=== PATIENT | female | born 1995 | race Caucasian/White ===

== ENCOUNTER 2021-08-11 11:30 | Outpatient (CLI) | payer OTHER, SELFPAY ==
--- NOTE | 2021-08-11 13:05 | W.ANESCHARGE ---
Anesthesia Charges Start Date/Time Anesthesia Start Date: 08/11/21 Anesthesia Start Time: 12:45 Stop Date/Time Anesthesia Stop Date: 08/11/21 Anesthesia Stop Time: 13:03 Summary Emergency: No
--- NOTE | 2021-08-11 14:06 | W.ANESCHARGE ---
Anesthesia Charges Start Date/Time Anesthesia Start Date: 08/11/21 Anesthesia Start Time: 12:45 Stop Date/Time Anesthesia Stop Date: 08/11/21 Anesthesia Stop Time: 13:03 Summary Emergency: No
== END 2021-08-11 11:31 | disposition home or self-care (01) ==
LOC: OP CLINIC 11:31
PROVIDERS: PCP Family Medicine; Visit Provider Surgery
DX: R10.13 Epigastric pain (principal); R19.8 Other specified symptoms and signs involving the digestive system and abdomen
CPT/HCPCS: 43239; 731; 88305; 88342; J2704